=== PATIENT | male | born 1965 | race American Indian/Alaskan Native ===

== ENCOUNTER 2019-04-04 20:04 | Emergency (ER) | payer SELFPAY ==
[2019-04-04 20:11] VITALS: BP 161/95
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
[2019-04-05] MEDS ORDERED: IBUPROFEN 600 MG TAB PO ONE (00:22)
[2019-04-05] MEDS ORDERED: ONDANSETRON 4 MG ODT TAB PO ONE (00:22)
[2019-04-05] MEDS ORDERED: oxyCODONE /ACETAMINOPHEN 5-325MG TAB PO ONE (00:22)
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
== END 2019-04-05 01:05 | disposition home or self-care (01) ==
LOC: ED 20:04
DX: S39.012A Strain of muscle, fascia and tendon of lower back, initial encounter (principal); M62.830 Muscle spasm of back; M62.838 Other muscle spasm; Z79.899 Other long term (current) drug therapy; V49.49XA Driver injured in collision with other motor vehicles in traffic accident, initial encounter; Y93.89 Activity, other specified; Y92.410 Unspecified street and highway as the place of occurrence of the external cause; Y99.8 Other external cause status
CPT/HCPCS: 72040; 72100; Q0162

== ENCOUNTER 2021-11-05 00:57 | Emergency (ER) | payer SELFPAY ==
[2021-11-05] MEDS ORDERED: dexAMETHasone 20 MG/5 ML VIAL IM ONE (09:50)
[2021-11-05] MEDS ORDERED: MAGIC MOUTHWASH 30ML PO NR (09:50)
--- NOTE | 2021-11-05 09:51 | Emergency Department Report ---
Minor Respiratory - HPI Chief Complaint: Sore Throat Stated Complaint: SORE THROAT Time Seen by Provider: 11/05/21 09:17 Duration: 2 Days Pain Location: Throat Severity: moderate Minor Respiratory: Yes Sore Throat, Yes Able to Tolerate Fluids, No Rhinorrhea, No Ear Pain, No Cough, No Sick Contacts (recent travel to [place]), No Hemoptysis, No Chest Pain, No Shortness of Breath, No Fever Other History: This is a 56-year-old male who presents with throat pain worsening since yesterday. Patient states he was recently in [place] and just returned back home when symptoms started. Patient does not recall being around anyone that is been sick. Patient also complains of sinus congestion. He denies fever/chills/chest pain/shortness of breath/blurry vision or any other complaints. ED Review of Systems ROS: Stated complaint: SORE THROAT Other details as noted in HPI Comment: All other systems reviewed and negative ED Past Medical Hx - Social History Smoking Status: Never Smoker Substance Use Type: None - Medications Home Medications: Home Medications Medication Instructions Recorded Confirmed Last Taken Type Cyclobenzaprine [Flexeril] 10 mg PO TID PRN #20 tablet 03/19/18 Unknown Rx Ibuprofen [Ibuprofen 800] 800 mg PO Q6H PRN #20 tablet 03/19/18 Unknown Rx Ibuprofen [Motrin] 800 mg PO Q8HR PRN #30 tablet 04/05/19 Unknown Rx methOCARBAMOL [Robaxin TAB] 750 mg PO Q8H PRN #24 tablet 04/05/19 Unknown Rx traMADoL [Ultram] 50 mg PO Q6HR PRN #10 tablet 04/05/19 Unknown Rx Ibuprofen [Motrin 800 MG tab] 800 mg PO Q8HR PRN #30 tablet 11/05/21 Unknown Rx Nystas/Diphen/Xyl Visc/Mylanta 15 ml MM Q6H PRN #120 ml 11/05/21 Unknown Rx [Magic Mouthwash] Minor Respiratory Exam - Exam General: Vital signs noted. No distress. Alert and acting appropriately. HEENT: Yes Pharyngeal Erythema, Yes Moist Mucous Membranes, No Pharyngeal Exudates, No Rhinorrhea, No Conjuctival Injection, No Frontal Tenderness, No Maxillary Tenderness Ear: Neither TM Bulge, Neither TM Erythema, Neither EAC Pain, Neither EAC Discharge Neck: Yes Supple, No Adenopathy Lungs: Yes Good Air Exchange, No Wheezes, No Ronchi, No Stridor, No Cough, No Labored Respirations, No Retractions, No Use of Accessory Muscles, No Other Abnormal Lung Sounds Heart: Yes Regular, No Murmur Abdomen: Yes Normal Bowel Sounds, No Tenderness, No Peritoneal Signs Skin: No Rash, No Edema Neurologic: Alert and oriented, no deficits. Musculoskeletal: Unremarkable. ED Course Vital Signs 11/05/21 01:06 Temperature 98.4 F Pulse Rate 85 Respiratory 16 Rate Blood Pressure 123/75 O2 Sat by Pulse 99 Oximetry ED Medical Decision Making - Medical Decision Making 56-year-old male presents with pharyngitis. ED course: Rapid strep tests ordered rapid strep test negative Patient received Magic mouthwash and Decadron in the ED. discussed with patient that this is most likely viral and symptomatic relief is needed Vital signs stable patient is in no acute or respiratory distress. Discussed findings with patient about the negative strep. Discussed the patient this could be contagious and to limit sharing spoons and such. Discussed with patient to get tested for COVID. Patient states he has a home test and will test.. Discussed with patient follow-up with primary care physician. Patient verbally states he understands and will comply to follow-up. - Differential Diagnosis Strep pharyngitis, acute tonsillitis, sinusitis, COVID 19 Critical care attestation.: If time is entered above; I have spent that time in minutes in the direct care of this critically ill patient, excluding procedure time. ED Disposition Clinical Impression: Pharyngitis, URI (upper respiratory infection) Disposition: HOME / SELF CARE / HOMELESS Is pt being admited?: No Does the pt Need Aspirin: No Condition: Stable Instructions: Tonsillitis, [id number], Viral Respiratory Infection Additional Instructions: Make sure to follow up with the primary care physician as discussed. Make sure to take your COVID test when you get home. You may also follow-up with the urgent care for PCR testing for COVID. If you have any worsening symptoms or develop new symptoms please return to ED immediately. Prescriptions: Nystas/Diphen/Xyl Visc/Mylanta [Magic Mouthwash] 15 ml MM Q6H PRN #120 ml PRN Reason: Sore Throat Ibuprofen [Motrin 800 MG tab] 800 mg PO Q8HR PRN #30 tablet PRN Reason: Pain Referrals: [facility] [place] [Outside] - 3-5 Days [facility] [Outside] - 3-5 Days Forms: Accompanied Note, Work/School Release Form(ED) Time of Disposition: 13:25
[2021-11-05 13:50] VITALS: BP 122/70
== END 2021-11-05 13:48 | disposition home or self-care (01) ==
LOC: ED 00:57
DX: J06.9 Acute upper respiratory infection, unspecified (principal); J02.9 Acute pharyngitis, unspecified
CPT/HCPCS: 87116; 87430; 96372; 99283; J1100